=== PATIENT | male | born 1980 | race Caucasian/White ===

== ENCOUNTER 2016-11-11 23:10 | Emergency (ER) | payer SELFPAY ==
[~2016-11-11] VITALS: Ht 175.3 cm; Wt 149.7 kg
[2016-11-12 00:28] LABS: CALCIUM 8.9 mg/dL (8.5-10.1); CREATININE 1.1 mg/dL (0.7-1.3); GFR 76.2; POTASSIUM 3.2 mmol/L (3.5-5.1)
--- NOTE | 2016-11-12 00:31 | PHYS DOC ---
Past Medical History Past Medical History: Hypertension Past Surgical History: Other Additional Past Surgical Histo: L leg fx Alcohol Use: None Drug Use: None Adult General Chief Complaint Chief Complaint: NEAR SYNCOPE HPI HPI Patient is a 36 year old male who presents by EMS from work for evaluation of lightheadedness and fatigue. 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 States he has not been eating or drinking as well since starting work. He felt as if he would pass out, so his work called EMS. He denies chest pain, palpitations, diaphoresis, dizziness, vision changes, back pain, abdominal pain, nausea or vomiting, diarrhea, dysuria Now that he is in air conditioning, he is feeling much better. Review of Systems Review of Systems Constitutional: Denies fever or chills [] Eyes: Denies change in visual acuity, redness, or eye pain [] HENT: Denies nasal congestion or sore throat [] Respiratory: Denies cough or shortness of breath [] Cardiovascular: No additional information not addressed in HPI [] GI: Denies abdominal pain, nausea, vomiting, bloody stools or diarrhea [] : Denies dysuria or hematuria [] Musculoskeletal: Denies back pain or joint pain [] Integument: Denies rash or skin lesions [] Neurologic: Denies headache, focal weakness or sensory changes [] Endocrine: Denies polyuria or polydipsia [] Current Medications Current Medications Current Medications Medications (Trade) Dose Ordered Sig/Raul Start Time Stop Time Status Last Admin Dose Admin Potassium Chloride (Klor-Con) 40 meq 1X ONCE 11/12/16 00:45 11/12/16 00:46 DC 11/12/16 00:48 40 MEQ Allergies Allergies Allergies Coded Allergies Type Severity Reaction Last Updated Verified No Known Drug Allergies 11/11/16 No Physical Exam Physical Exam Constitutional: Well developed, well nourished, no acute distress, non-toxic appearance. [] HENT: Normocephalic, atraumatic, bilateral external ears normal, oropharynx moist, no oral exudates, nose normal. [] Eyes: PERRLA, EOMI. [] Neck: Normal range of motion, supple. [] Cardiovascular:Heart rate regular rhythm [] Lungs & Thorax: Bilateral breath sounds clear to auscultation [] Abdomen: Bowel sounds normal, soft, no tenderness. [] Skin: Warm, dry, no erythema, no rash. [] Back: Normal range of motion. [] Extremities: No tenderness, ROM intact, no edema. [] Neurologic: Alert and oriented X 3, normal motor function, normal sensory function, no focal deficits noted, cranial nerves II through XII intact. [] Psychologic: Affect normal, judgement normal, mood normal. [] Current Patient Data Vital Signs Vital Signs Date Time Temp Pulse Resp B/P (MAP) Pulse Ox O2 Delivery O2 Flow Rate FiO2 11/12/16 00:48 93 28 180/97 (124) 100 Room Air 11/11/16 23:10 98.7 98.7 Lab Values Laboratory Tests Test 11/11/16 23:30 Sodium Level 147 mmol/L (136-145) H Potassium Level 3.2 mmol/L (3.5-5.1) L Chloride Level 108 mmol/L (98-107) H Carbon Dioxide Level 28 mmol/L (21-32) Anion Gap 11 (6-14) Blood Urea Nitrogen 10 mg/dL (8-26) Creatinine 1.1 mg/dL (0.7-1.3) Estimated GFR (Cockcroft-Gault) 76.2 Glucose Level 85 mg/dL (70-99) Calcium Level 8.9 mg/dL (8.5-10.1) Laboratory Tests 11/11/16 23:30 EKG EKG EKG as interpreted by me as sinus tachycardia, rate 105, no ST-T changes, normal intervals, no ectopy Course & Med Decision Making Course & Med Decision Making Pertinent Labs and Imaging studies reviewed. (See chart for details) Workup is unremarkable other than mild hypokalemia. He is feeling better after medications here and would like to go home. Return precautions given. He understands and agrees plan. Dragon Disclaimer Dragon Disclaimer This electronic medical record was generated, in whole or in part, using a voice recognition dictation system. Departure Departure Impression: Primary Impression: Pre-syncope Disposition: HOME, SELF-CARE Condition: STABLE Referrals: NO PCP (PCP) Patient Instructions: Medical Screening Exam Additional Instructions: Drink liquids to stay hydrated. Follow-up with your primary care doctor within one week. Return for any concerns. Teressa VELASQUEZ MD Nov 12, 2016 00:31
[2016-11-12] MEDS ORDERED: POTASSIUM CHLORIDE 20 MEQ TABLET.ER. PO ONE (00:45)
[2016-11-12 00:48] VITALS: BP 180/97
--- NOTE | 2016-11-12 08:49 | EKG ---
[facility] [address] [place] [address] Test Date: 2016-11-11 Test Time: 23:19:51 Pat Name: SHELIA POLLOCK Department: Room: Gender: M Beet Topper: : 1980 Requested By: Teressa VELASQUEZ Order Number: [id number] Reading MD: Measurements Intervals [place] Rate: 105 P: 49 [place]: 162 QRS: -15 QRSD: 96 T: 61 QT: 356 QTc: 475 Interpretive Statements SINUS TACHYCARDIA LEFTWARD AXIS T ABNORMALITY IN HIGH LATERAL LEADS RI6.01 Unconfirmed report No previous ECG available for comparison
== END 2016-11-12 00:48 | disposition home or self-care (01) ==
LOC: ER 23:10
DX: R55 Syncope and collapse (principal); I10 Essential (primary) hypertension
CPT/HCPCS: 36415; 80048; 93005; 99285-25

== ENCOUNTER 2019-05-07 05:02 | Emergency (ER) | payer SELFPAY ==
[~2019-05-07] VITALS: Ht 175.3 cm; Wt 164.3 kg
[2019-05-07 05:08] VITALS: BP 163/103
[2019-05-07] MEDS ORDERED: ZIPRASIDONE IM 20 MG VIAL. IM ONE (05:10)
--- NOTE | 2019-05-07 05:44 | PHYS DOC ---
Past Medical History Past Medical History: Hypertension Additional Past Medical Histor: BORDERLINE DM Past Surgical History: Other Additional Past Surgical Histo: L leg fx Alcohol Use: None Drug Use: None Adult General Chief Complaint Chief Complaint: COUGH HPI HPI Patient is a 39-year-old male who presents with complaint of cough for the last few days. Patient states that initially it was productive but he states that he is not really producing any more mucus. Patient states he just wanted to be seen to make sure that he doesn't have pneumonia. He denies any fever. He denies any chest pain or shortness of breath.[] Review of Systems Review of Systems Constitutional: Denies fever or chills [] Respiratory: [place] of cough without shortness of breath [] Cardiovascular: No additional information not addressed in HPI [] GI: Denies abdominal pain, nausea, vomiting or diarrhea [] Integument: Denies rash or skin lesions [] Neurologic: Denies headache, focal weakness or sensory changes [] Current Medications Current Medications Current Medications Medications (Trade) Dose Ordered Sig/Raul Start Time Stop Time Status Last Admin Dose Admin Ziprasidone (Geodon Im) 20 mg STK-MED ONCE 05/07/19 05:10 05/07/19 05:10 DC Allergies Allergies Allergies Coded Allergies Type Severity Reaction Last Updated Verified No Known Drug Allergies 11/11/16 No Physical Exam Physical Exam Constitutional: Well developed, well nourished, no acute distress, non-toxic appearance. [] Neck: Normal range of motion, no tenderness, supple, no stridor. [] Cardiovascular: Regular rate and rhythm[] Lungs & Thorax: Bilateral breath sounds clear to auscultation [] Skin: Warm, dry, no erythema, no rash. [] Current Patient Data Vital Signs Vital Signs Date Time Temp Pulse Resp B/P (MAP) Pulse Ox O2 Delivery O2 Flow Rate FiO2 05/07/19 05:08 98.1 95 20 163/103 (123) 98 Room Air 98.1 EKG EKG [] Radiology/Procedures Radiology/Procedures [] Course & Med Decision Making Course & Med Decision Making Pertinent Labs and Imaging studies reviewed. (See chart for details) [] Dragon Disclaimer Dragon Disclaimer This electronic medical record was generated, in whole or in part, using a voice recognition dictation system. Departure Departure Impression: Primary Impression: Upper respiratory infection Disposition: 07 AGAINST MEDICAL ADVICE (an MSE has been completed on this patient and patient has decided against treatment) Condition: STABLE Referrals: NO PCP (PCP) Problem Qualifiers Primary Impression: Upper respiratory infection URI type: unspecified URI Qualified Codes: J06.9 - Acute upper respiratory infection, unspecified KIMBERLEE LERNER Jr. DO May 07, 2019 05:44
== END 2019-05-07 05:50 | disposition home or self-care (01) ==
LOC: ER 05:02
DX: J06.9 Acute upper respiratory infection, unspecified (principal); I10 Essential (primary) hypertension; R73.09 Other abnormal glucose
CPT/HCPCS: 99281-25